=== PATIENT | male | born 1955 | race Two or more races ===

== ENCOUNTER 2016-12-10 15:21 | Emergency (ER) | payer BC ==
[2016-12-10 15:32] VITALS: BP 118/62
--- NOTE | 2016-12-10 15:36 | ER Document Report ---
ED Medical Screen (RME) - General Stated Complaint: LIGHT HEADED Time seen by provider: 15:35 Mode of Arrival: Wheelchair Information source: Patient Notes: 51-year-old male presents to ED for lightheadedness and dizziness for the last hour. Denies any chest pain or pressure denies shortness of breath. States he has a back pain all over. States she had a light heart attack a couple years ago. I have greeted and performed a rapid initial assessment of this patient. A comprehensive ED assessment and evaluation of the patient, analysis of test results and completion of medical decision making process will be conducted by an additional ED providers. TRAVEL OUTSIDE OF THE [place] IN LAST 30 DAYS: No - Related Data Allergies/Adverse Reactions: No Known Allergies Allergy (Verified 12/10/16 15:34) Past Medical History - Past Medical History Cardiac Medical History: Reports: Hx Heart Attack, Hx Hypercholesterolemia, Hx Hypertension Denies: Hx Coronary Artery Disease Pulmonary Medical History: Reports: Hx Pneumonia - 4 year ago. Denies: Hx Asthma, Hx Bronchitis, Hx COPD Neurological Medical History: Denies: Hx Cerebrovascular Accident, Hx Seizures Endocrine Medical History: Reports: Hx Diabetes Mellitus Type 2 Musculoskeltal Medical History: Reports Hx Arthritis Past Surgical History: Reports: Hx Orthopedic Surgery - left and right knee - Immunizations Hx Diphtheria, Pertussis, Tetanus Vaccination: Yes Physical Exam - Vital signs Vitals: Temp Pulse Resp BP Pulse Ox 98.8 F 100 20 118/62 98 12/10/16 15:30 12/10/16 15:30 12/10/16 15:30 12/10/16 15:30 12/10/16 15:30 Course - Vital Signs Vital signs: Temp Pulse Resp BP Pulse Ox 98.8 F 100 20 118/62 98 12/10/16 15:30 12/10/16 15:30 12/10/16 15:30 12/10/16 15:30 12/10/16 15:30 - Laboratory Result Diagrams: 12/10/16 16:00 12/10/16 16:00 Laboratory results interpreted by me: 12/10/16 16:00 Carbon Dioxide 21 L Glucose 229 H Doctor's Discharge - Discharge Disposition: [facility]
[2016-12-10] MEDS ORDERED: ASPIRIN 81 MG TABLET, CHEWABLE PO ONE (15:37)
[2016-12-10 16:17] LABS: ABSOLUTE BASOPHILS # (AUTO) 0.1 10^3/uL (0.0-0.2); ABSOLUTE EOSINOPHILS # (AUTO) 0.3 10^3/uL (0.0-0.6); ABSOLUTE LYMPHOCYTES (AUTO) 1.7 10^3/uL (0.5-4.7); ABSOLUTE MONOCYTES (AUTO) 0.7 10^3/uL (0.1-1.4); BASOPHILS % (AUTO) 0.8 % (0-2); EOSINOPHILS % (AUTO) 2.8 % (0-6); HEMATOCRIT 44.2 % (37.9-51.0); HEMOGLOBIN 14.5 g/dL (13.5-17.0); HGB HCT DIFFERENCE -0.7; LYMPHOCYTES % (AUTO) 17.2 % (13-45); MEAN CORPUSCULAR HEMOGLOBIN 30.5 pg (27.0-33.4); MEAN CORPUSCULAR HGB CONC 32.9 g/dL (32.0-36.0); MEAN CORPUSCULAR VOLUME 93 fl (80-97); MONOCYTES % (AUTO) 7.1 % (3-13); RED BLOOD COUNT 4.76 10^6/uL (4.35-5.55); RED CELL DISTRIBUTION WIDTH 13.7 % (11.5-14.0); SEGMENTED NEUTROPHILS % (AUTO) 72.1 % (42-78); WHITE BLOOD COUNT 9.7 10^3/uL (4.0-10.5)
[2016-12-10 16:32] LABS: ALANINE AMINOTRANSFERASE 46 U/L (21-72); ALBUMIN 4.2 g/dL (3.5-5.0); ALKALINE PHOSPHATASE 83 U/L (38-126); ANION GAP 14 (5-19); ASPARTATE AMINO TRANSFERASE 28 U/L (17-59); BILIRUBIN,DIRECT 0.3 mg/dL (0.0-0.4); BILIRUBIN,TOTAL 0.7 mg/dL (0.2-1.3); BLOOD UREA NITROGEN 8 mg/dL (7-20); CARBON DIOXIDE 21 mmol/L (22-30); CHLORIDE 105 mmol/L (98-107); CREATINE KINASE 69 U/L (55-170); CREATININE RESULT 0.54 mg/dL (0.52-1.25); GLUCOSE 229 mg/dL (75-110); SODIUM 140.3 mmol/L (137-145); TOTAL PROTEIN 7.3 g/dL (6.3-8.2)
[2016-12-10 16:51] LABS: CREATINE KINASE MB 0.56 ng/mL (<4.55)
[2016-12-10 16:53] LABS: TROPONIN I < 0.012 ng/mL
--- NOTE | 2016-12-10 18:35 | EKG REPORT ---
SEVERITY:- ABNORMAL ECG - SINUS RHYTHM RIGHT BUNDLE BRANCH BLOCK LVH WITH IVCD AND SECONDARY REPOL ABNRM : Confirmed by: Wilber Lindsey MD 10-Dec-2016 18:34:40
== END 2016-12-10 20:15 | disposition left against medical advice (07) ==
LOC: ER 15:21
DX: Z53.9 Procedure and treatment not carried out, unspecified reason (principal); R42 Dizziness and giddiness; E78.00 Pure hypercholesterolemia, unspecified; I10 Essential (primary) hypertension; I25.2 Old myocardial infarction
CPT/HCPCS: 36415; 71020; 80053; 82550; 82553; 84484; 85025; 93005; 93010; 99281

== ENCOUNTER → 2017-03-12 | Outpatient (CLI) | payer BC ==
[2017-03-12 18:25] LABS: ABSOLUTE BASOPHILS # (AUTO) 0.1 10^3/uL (0.0-0.2); ABSOLUTE EOSINOPHILS # (AUTO) 0.5 10^3/uL (0.0-0.6); ABSOLUTE LYMPHOCYTES (AUTO) 2.4 10^3/uL (0.5-4.7); ABSOLUTE MONOCYTES (AUTO) 0.8 10^3/uL (0.1-1.4); ABSOLUTE NEUT (AUTO) 6.8 10^3/uL (1.7-8.2); BASOPHILS % (AUTO) 0.6 % (0-2); EOSINOPHILS % (AUTO) 4.6 % (0-6); HEMATOCRIT 42.7 % (37.9-51.0); HEMOGLOBIN 13.9 g/dL (13.5-17.0); LYMPHOCYTES % (AUTO) 22.7 % (13-45); MEAN CORPUSCULAR HEMOGLOBIN 30.9 pg (27.0-33.4); MEAN CORPUSCULAR HGB CONC 32.7 g/dL (32.0-36.0); MEAN CORPUSCULAR VOLUME 95 fl (80-97); MONOCYTES % (AUTO) 7.7 % (3-13); RED BLOOD COUNT 4.51 10^6/uL (4.35-5.55); RED CELL DISTRIBUTION WIDTH 13.9 % (11.5-14.0); SEGMENTED NEUTROPHILS % (AUTO) 64.4 % (42-78); WHITE BLOOD COUNT 10.6 10^3/uL (4.0-10.5)
[2017-03-12 18:51] LABS: ALANINE AMINOTRANSFERASE 49 U/L (21-72); ALBUMIN 4.1 g/dL (3.5-5.0); ALKALINE PHOSPHATASE 73 U/L (38-126); ANION GAP 11 (5-19); ASPARTATE AMINO TRANSFERASE 41 U/L (17-59); BILIRUBIN,DIRECT 0.3 mg/dL (0.0-0.4); BILIRUBIN,TOTAL 0.5 mg/dL (0.2-1.3); BLOOD UREA NITROGEN 6 mg/dL (7-20); CALCIUM 9.5 mg/dL (8.4-10.2); CARBON DIOXIDE 25 mmol/L (22-30); CHLORIDE 103 mmol/L (98-107); CREATINE KINASE 111 U/L (55-170); CREATININE RESULT 0.53 mg/dL (0.52-1.25); GLUCOSE 157 mg/dL (75-110); SODIUM 139.3 mmol/L (137-145); TOTAL PROTEIN 7.3 g/dL (6.3-8.2)
== END ==
LOC: LAB 17:03
PROVIDERS: ATTEND Obstetrics & Gynecology
DX: E11.9 Type 2 diabetes mellitus without complications (principal); I10 Essential (primary) hypertension
CPT/HCPCS: 36415; 80053; 82550; 83036; 85025

== ENCOUNTER → 2017-10-18 | Outpatient (CLI) | payer BC ==
[2017-10-18 11:52] LABS: APPEARANCE,URINE CLEAR; BILIRUBIN,URINE NEGATIVE (NEGATIVE); COLOR,URINE YELLOW; GLUCOSE, URINE >=500 mg/dL (NEGATIVE); KETONES,URINE NEGATIVE (NEGATIVE); LEUKOCYTE ESTERASE,URINE NEGATIVE (NEGATIVE); NITRITE,URINE NEGATIVE (NEGATIVE); PROTEIN,URINE 30 mg/dL (NEGATIVE)
[2017-10-18 11:53] LABS: ABSOLUTE BASOPHILS # (AUTO) 0.1 10^3/uL (0.0-0.2); ABSOLUTE EOSINOPHILS # (AUTO) 0.5 10^3/uL (0.0-0.6); ABSOLUTE LYMPHOCYTES (AUTO) 2.3 10^3/uL (0.5-4.7); ABSOLUTE MONOCYTES (AUTO) 0.6 10^3/uL (0.1-1.4); ABSOLUTE NEUT (AUTO) 5.3 10^3/uL (1.7-8.2); BASOPHILS % (AUTO) 0.8 % (0-2); EOSINOPHILS % (AUTO) 5.9 % (0-6); HEMATOCRIT 42.7 % (37.9-51.0); HEMOGLOBIN 14.1 g/dL (13.5-17.0); LYMPHOCYTES % (AUTO) 26.2 % (13-45); MEAN CORPUSCULAR HEMOGLOBIN 31.2 pg (27.0-33.4); MEAN CORPUSCULAR VOLUME 95 fl (80-97); MONOCYTES % (AUTO) 7.3 % (3-13); PLATELET COUNT 263 10^3/uL (150-450); RED BLOOD COUNT 4.51 10^6/uL (4.35-5.55); RED CELL DISTRIBUTION WIDTH 13.8 % (11.5-14.0); SEGMENTED NEUTROPHILS % (AUTO) 59.8 % (42-78); TOTAL CELLS COUNTED % (AUTO) 100 %; WHITE BLOOD COUNT 8.8 10^3/uL (4.0-10.5)
[2017-10-18 12:19] LABS: ANION GAP 11 (5-19); BLOOD UREA NITROGEN 8 mg/dL (7-20); CALCIUM 10.1 mg/dL (8.4-10.2); CARBON DIOXIDE 28 mmol/L (22-30); CHLORIDE 101 mmol/L (98-107); GLUCOSE 231 mg/dL (75-110); SODIUM 139.5 mmol/L (137-145)
--- NOTE | 2017-10-18 12:47 | EKG REPORT ---
SEVERITY:- ABNORMAL ECG - SINUS RHYTHM IVCD, CONSIDER ATYPICAL RBBB LVH WITH IVCD AND SECONDARY REPOL ABNRM : Confirmed by: Janet Fox MD 18-Oct-2017 12:46:28
--- NOTE | 2017-10-18 13:09 | RADIOLOGY REPORT (SQ) ---
EXAM DESCRIPTION: CHEST PA/LATERAL COMPLETED DATE/TIME: 10/18/2017 11:48 am REASON FOR STUDY: PRE-OP COMPARISON: 12/10/2016. EXAM PARAMETERS: NUMBER OF VIEWS: two views TECHNIQUE: Digital Frontal and Lateral radiographic views of the chest acquired. RADIATION DOSE: NA LIMITATIONS: none FINDINGS: LUNGS AND PLEURA: No opacities, masses or pneumothorax. No pleural effusion. MEDIASTINUM AND HILAR STRUCTURES: No masses or contour abnormalities. HEART AND VASCULAR STRUCTURES: Heart normal size. No evidence for failure. BONES: No acute findings. Degenerative changes in the spine. HARDWARE: None in the chest. OTHER: No other significant finding. IMPRESSION: NO SIGNIFICANT RADIOGRAPHIC FINDING IN THE CHEST. TECHNICAL DOCUMENTATION: JOB ID: [id number] [employer]- All Rights Reserved
== END ==
LOC: OD 10:32
PROVIDERS: ATTEND Orthopaedic Surgery
DX: Z01.810 Encounter for preprocedural cardiovascular examination (principal); Z01.812 Encounter for preprocedural laboratory examination; Z01.818 Encounter for other preprocedural examination; E11.9 Type 2 diabetes mellitus without complications
CPT/HCPCS: 36415; 71046; 80048; 81001; 83036; 85025; 93005; 93010

== ENCOUNTER → 2017-10-24 | Outpatient (CLI) | payer BC ==
[2017-10-24 11:37] LABS: AMORPHOUS SEDIMENT,URINE TRACE /HPF; APPEARANCE,URINE CLOUDY; BILIRUBIN,URINE SMALL (NEGATIVE); COLOR,URINE AMBER; GLUCOSE, URINE NEGATIVE (NEGATIVE); KETONES,URINE NEGATIVE (NEGATIVE); LEUKOCYTE ESTERASE,URINE TRACE (NEGATIVE); NITRITE,URINE NEGATIVE (NEGATIVE); PROTEIN,URINE 30 mg/dL (NEGATIVE); URINE SPECIFIC GRAVITY 1.032
[2017-10-24 11:38] LABS: ABSOLUTE BASOPHILS # (AUTO) 0.1 10^3/uL (0.0-0.2); ABSOLUTE EOSINOPHILS # (AUTO) 0.3 10^3/uL (0.0-0.6); ABSOLUTE LYMPHOCYTES (AUTO) 1.6 10^3/uL (0.5-4.7); ABSOLUTE MONOCYTES (AUTO) 0.9 10^3/uL (0.1-1.4); ABSOLUTE NEUT (AUTO) 6.8 10^3/uL (1.7-8.2); HEMATOCRIT 44.5 % (37.9-51.0); HEMOGLOBIN 14.8 g/dL (13.5-17.0); MEAN CORPUSCULAR HEMOGLOBIN 31.6 pg (27.0-33.4); MEAN CORPUSCULAR HGB CONC 33.3 g/dL (32.0-36.0); MEAN CORPUSCULAR VOLUME 95 fl (80-97); MONOCYTES % (AUTO) 9.3 % (3-13); PLATELET COUNT 300 10^3/uL (150-450); RED BLOOD COUNT 4.69 10^6/uL (4.35-5.55); RED CELL DISTRIBUTION WIDTH 13.9 % (11.5-14.0); SEGMENTED NEUTROPHILS % (AUTO) 69.7 % (42-78); TOTAL CELLS COUNTED % (AUTO) 100 %; WHITE BLOOD COUNT 9.7 10^3/uL (4.0-10.5)
[2017-10-24 11:56] LABS: ANION GAP 10 (5-19); BLOOD UREA NITROGEN 8 mg/dL (7-20); CALCIUM 10.4 mg/dL (8.4-10.2); CARBON DIOXIDE 26 mmol/L (22-30); CHLORIDE 103 mmol/L (98-107); GLUCOSE 134 mg/dL (75-110); POTASSIUM 4.5 mmol/L (3.6-5.0); SODIUM 139.3 mmol/L (137-145)
== END ==
LOC: OD 10:59
PROVIDERS: ATTEND Orthopaedic Surgery
DX: Z01.812 Encounter for preprocedural laboratory examination (principal)
CPT/HCPCS: 36415; 80048; 81001; 85025

== ENCOUNTER 2017-11-04 07:18 | Inpatient (IN) | payer BC ==
[~2017-11-04 07:18] MED LIST: BUPIVACAINE INJ/PF LIPOSOME/PF 266 MG/20 ML SDV IJ PRN; CEFAZOLIN INJ 1 GM VIAL IV PRN; IBUPROFEN 800 MG/NS 250 ML IV PRN; LACTATED RINGERS 1000 ML IV PRN; LANSOPRAZOLE 15 MG TAB.RAP.DR PO PRN; LIDOCAINE 0.5% INJ-PF (5 MG/ML) 50 ML SDV SUBCUT PRN; OXYCODONE HCL SR 10 MG TABLET PO PRN; SCOPOLAMINE HYDROBROMIDE 1.5 MG PATCH.TD72 TOP PRN; VANCOMYCIN HCL 1,000 MG in DEXTROSE 5%-WATER 250 ML IV PRN
[2017-11-04] MEDS ORDERED: THROMBIN (BOVINE) 5000 UNIT EPITAXIS KIT ONE (09:36)
[2017-11-04] MEDS ORDERED: BUPIVACAINE INJ/PF LIPOSOME/PF 266 MG/20 ML SDV ONE (09:36)
[2017-11-04] MEDS ORDERED: THROMBIN (BOVINE) TOPICAL 20000 UNIT VIAL ONE (09:36)
[2017-11-04] MEDS ORDERED: FENTANYL CITRATE INJ/PF 100 MCG/2 ML AMPUL ONE ×2 (09:44)
[2017-11-04] MEDS ORDERED: MIDAZOLAM 2 MG/2 ML INJ ONE (09:44)
[2017-11-04] MEDS ORDERED: ONDANSETRON HCL INJ/PF 4 MG/2 ML SDV ONE (09:45)
[2017-11-04] MEDS ORDERED: EPHEDRINE SULFATE INJ 50 MG/1 ML AMPULE ONE (09:45)
[2017-11-04] MEDS ORDERED: TRANEXAMIC ACID INJ/PF 1,000 MG/10 ML SDV IV ONE ×2 (09:45→13:42)
[2017-11-04] MEDS ORDERED: PROPOFOL INJ 200 MG/20 ML VIAL IV ONE (09:45)
[2017-11-04] MEDS ORDERED: DIPHENHYDRAMINE HCL 50 MG/ML VIAL IV PRN ×2 (11:00→11:52)
[2017-11-04] MEDS ORDERED: FENTANYL CITRATE INJ/PF 100 MCG/2 ML AMPUL IV PRN ×3 (11:00)
[2017-11-04] MEDS ORDERED: PROMETHAZINE HCL INJ 25 MG/1 ML VIAL IV PRN (11:00)
--- NOTE | 2017-11-04 11:33 | Operative Report ---
Operative Report DATE OF SURGERY: 11/04/17 PREOPERATIVE DIAGNOSIS: Right knee arthritis OPERATION: Right knee arthroplasty SURGEON: NASEEM HUGHES 1ST EDITING INTERNSHIP: [employer] ANESTHESIA: Spinal TISSUE REMOVED OR ALTERED: Bone to pathology ESTIMATED BLOOD LOSS: 100 PROCEDURE: Implants used: Femur: Viper triathlon size 7 CR femur Tibia: 6 tibia Tibial liner: 9 mm CS insert Patella: 38 mm oval patella Procedure with the patient supine on the operating table the right the limb is prepped and draped in a sterile fashion. The limb was elevated for exsanguination and the tourniquet inflated to 280 torr. A lateral parapatellar skin incision is made because of her previous surgical approach for an MCL repair in the distant past. I was concerned about skin viability an attempt was made to keep the skin incision only 7 cm from the previous skin incision.. A flap is raised and subsequently a medial retinacular incision is made. Access is gained to the femoral canal through the intercondylar notch. Intramedullary alignment instrumentation used to resect 10 mm of distal femur in 5 of valgus. Sizing guide indicated a size 7 femur. Appropriate cutting jig is then used to fashion anterior posterior and chamfer cuts. A trial reduction femurs performed and this is judged to be adequate. Attention was next turned to the tibia. Using an extra medullary alignment system 9 millimeters was resected off the lateral tibial plateau. This is sized to a size 6 tibia. A trial reduction was now performed with a 7 femur and a 6 tibia using a 9 millimeters spacer. It is full extension and central patellofemoral tracking. The articular surface the patella was next resected using an oscillating saw. All trial implants were removed. Polymethylmethacrylate is mixed and used to cement the above implants in place. On adequate curing the cement excess cement was removed the tourniquet was deflated hemostasis obtained the wound is then closed in layers using interrupted Vicryl followed by issa. A sterile compressive dressing was applied and the patient returned to recovery room in satisfactory condition.
[2017-11-04] MEDS ORDERED: ACETAMINOPHEN 325 MG TABLET PO PRN (11:52)
[2017-11-04] MEDS ORDERED: ONDANSETRON HCL INJ/PF 4 MG/2 ML SDV IV PRN (11:52)
[2017-11-04] MEDS ORDERED: MAG HYDROX/AL HYDROX/SIMETH SUSP 30 ML UDCUP PO PRN (11:52)
[2017-11-04] MEDS ORDERED: ONDANSETRON 4 MG TAB.RAPDIS PO PRN (11:52)
[2017-11-04] MEDS ORDERED: OXYCODONE HCL IR 5 MG TABLET PO PRN (11:52)
[2017-11-04] MEDS ORDERED: ZOLPIDEM TARTRATE 5 MG TABLET PO PRN (11:52)
--- NOTE | 2017-11-04 13:06 | RADIOLOGY REPORT (SQ) ---
EXAM DESCRIPTION: KNEE RIGHT 2 VIEWS COMPLETED DATE/TIME: 11/04/2017 12:38 pm REASON FOR STUDY: Post OP -Long Cassette in PACU M17.11 UNILATERAL PRIMARY OSTEOARTHRITIS, RIGHT KN EE COMPARISON: 11/04/2013 NUMBER OF VIEWS: Two view(s). TECHNIQUE: Digital radiographic images of the right knee post-procedure. LIMITATIONS: None. FINDINGS: BONES: No worrisome or unexpected findings post-procedure. DEVICE: Total knee arthroplasty. SOFT TISSUES: No worrisome findings. Expected postoperative soft tissue changes. IMPRESSION: SATISFACTORY POSTOPERATIVE right KNEE. TECHNICAL DOCUMENTATION: JOB ID: [id number] [employer]- All Rights Reserved
[2017-11-04] MEDS: FENTANYL CITRATE INJ/PF 100 MCG/2 ML AMPUL ONE ×2 (13:43→14:00)
[2017-11-04] MEDS: HYDROMORPHONE HCL INJ/PF 2 MG/ML AMPULE IV PRN ×2 (15:35→20:11)
[2017-11-04] MEDS: PREGABALIN 75 MG CAPSULE PO SCH (17:45)
[2017-11-04] MEDS: IBUPROFEN 800 MG in NORMAL SALINE 250 ML IV SCH (17:45)
[2017-11-04] MEDS ORDERED: ACETAMINOPHEN 100 ML IV ONE ×2 (17:52→20:00)
[2017-11-04] MEDS: OXYCODONE HCL SR 10 MG TABLET PO SCH (21:33)
[2017-11-04] MEDS ORDERED: VANCOMYCIN HCL 1,000 MG in DEXTROSE 5%-WATER 250 ML IV ONE (23:52)
[2017-11-05] MEDS: IBUPROFEN 800 MG in NORMAL SALINE 250 ML IV SCH ×2 (01:05→10:09)
[2017-11-05] MEDS ORDERED: LANSOPRAZOLE 30 MG TAB.RAP.DR PO SCH (06:00)
[2017-11-05 06:38] LABS: HEMATOCRIT 33.4 % (37.9-51.0); HEMOGLOBIN 11.1 g/dL (13.5-17.0); MEAN CORPUSCULAR HEMOGLOBIN 31.6 pg (27.0-33.4); MEAN CORPUSCULAR HGB CONC 33.2 g/dL (32.0-36.0); MEAN CORPUSCULAR VOLUME 95 fl (80-97); PLATELET COUNT 198 10^3/uL (150-450); RED BLOOD COUNT 3.52 10^6/uL (4.35-5.55); WHITE BLOOD COUNT 11.3 10^3/uL (4.0-10.5)
[2017-11-05 06:58] LABS: ANION GAP 9 (5-19); BLOOD UREA NITROGEN 9 mg/dL (7-20); CALCIUM 8.8 mg/dL (8.4-10.2); CARBON DIOXIDE 22 mmol/L (22-30); CHLORIDE 105 mmol/L (98-107); GLUCOSE 158 mg/dL (75-110); POTASSIUM 4.4 mmol/L (3.6-5.0); SODIUM 136.2 mmol/L (137-145)
--- NOTE | 2017-11-05 07:13 | PDOC DISCHARGE SUMMARY ---
General - Admit/Disc Date/PCP Admission Date/Primary Care Provider: 11/04/17 07:18 DEVIN TEE MD Discharge Date: 11/05/17 - Discharge Diagnosis (1) Arthritis of right knee Is this a current diagnosis for this admission?: Yes - Additional Information Resuscitation Status: Full Code Discharge Diet: As Tolerated, Regular Discharge Activity: Activity As Tolerated, No Driving, No tub bath, Walk Frequently Home Medications: Atorvastatin Calcium 40 mg PO QHS 10/23/17 Hydrocodone/Acetaminophen [Hydrocodone-Acetamin 7.5-325] 1 tab PO ASDIR PRN Metformin HCl [Glucophage] 500 mg PO BID 10/23/17 Amlodipine Besylate/Benazepril [Amlodipine-Benazepril 10-20 mg] 1 cap PO QHS 09/09 Isosorbide Mononitrate [Isosorbide Mononitrate ER] 30 mg PO DAILY 11/04/17 History of Present Illness History of Present Illness: KARINE ESQUEDA is a 62 year old male with progressive pain and decreased functional mobility due to right knee arthritis. He is admitted to the hospital to the OR and undergoes elective total right knee arthroplasty. Hospital Course Hospital Course: 62-year-old male with progressive pain and decreased functional mobility due to right knee arthritis admitted through the OR and undergoes elective total right knee arthroplasty. The surgical procedure is uncomplicated and he is returned to PACU in satisfactory condition. He is taken to the surgical floor where he is seen by physical therapy for weightbearing as tolerated on the right lower extremity as well as nursing staff for pain control. He makes great progress with physical therapy ambulating up to 300 feet independently. His pain is well controlled. He will be discharged to his home today with home health nursing, home physical therapy , wheeled walker, bedside commode. Physical Exam Vital Signs: Temp Pulse Resp BP Pulse Ox 36.8 C 79 20 109/68 92 11/05/17 03:58 11/05/17 03:58 11/05/17 03:58 11/05/17 03:58 11/05/17 03:58 Intake & Output 11/04/17 11/05/17 11/06/17 06:59 06:59 06:59 Intake Total 0 Output Total 2049 Balance 1989 General appearance: PRESENT: no acute distress, well-developed, well-nourished Head exam: PRESENT: atraumatic, normocephalic Respiratory exam: PRESENT: unlabored Pulses: PRESENT: normal dorsalis pedis pul, +2 pedal pulses bilateral Vascular exam: PRESENT: normal capillary refill Additional comments: Patient lying recumbent in hospital bed with right foot elevated on a pillow. His OpSite compression dressing is clean dry and intact and this is removed this morning. Underlying OpSite honeycomb dressing is clean dry and intact and this is left in place. He has minimal pedal edema and brisk capillary refill to toes on bilateral lower extremities. His leg lengths are equal and his distal neurovascular exam is intact. Musculoskeletal exam: PRESENT: ambulatory Additional comments: Patient has made great progress with physical therapy ambulating 300 feet on postop day 0 with physical therapy. He will continue to work with PT at home to improve distance of ambulation and strength range of motion of right lower extremity. Patient was even using wheeled walker and ambulating through the hallways this morning. Neurological exam: PRESENT: alert, awake, oriented to person, oriented to place , oriented to time, oriented to situation, CN II-XII grossly intact. ABSENT: motor sensory deficit Psychiatric exam: PRESENT: appropriate affect, normal mood. ABSENT: homicidal ideation, suicidal ideation Skin exam: PRESENT: dry, intact, warm. ABSENT: cyanosis, rash Results Laboratory Results: 11/05/17 05:20 11/05/17 05:20 11/05/17 11/05/17 05:20 05:20 WBC 11.3 H RBC 3.52 L Hgb 11.1 L Hct 33.4 L MCV 95 MCH 31.6 MCHC 33.2 RDW 14.0 Plt Count 198 Sodium 136.2 L Potassium 4.4 Chloride 105 Carbon Dioxide 22 Anion Gap 9 BUN 9 Creatinine 0.68 Est GFR ( Amer) > 60 Est GFR (Non-Af Amer) > 60 Glucose 158 H Calcium 8.8 Impressions: Knee X-Ray 11/04/17 11:53 IMPRESSION: SATISFACTORY POSTOPERATIVE right KNEE. Plan Discharge Plan: 62-year-old male 1 day status post total right knee arthroplasty. Patient's OpSite compression dressing was removed this morning and underlying OpSite dressings are clean dry and intact. These will be left in place. He has made great progress of physical therapy on postop day 0 ambulate 300 feet independently. He will continue to work with home physical therapy to improve strength range of motion of right lower extremity and work towards further ambulation. He will be discharged to his home today with home health nursing, home physical therapy, wheeled walker, bedside commode. He will follow-up with [facility] for surgery Dr. Smith 2 weeks postoperatively for reevaluation and staple removal. Time Spent: Less than 30 Minutes
[2017-11-05] MEDS: HYDROMORPHONE HCL INJ/PF 2 MG/ML AMPULE IV PRN (07:53)
[2017-11-05] MEDS ORDERED: ASPIRIN 81 MG TABLET, CHEWABLE PO SCH (10:00)
[2017-11-05] MEDS: OXYCODONE HCL SR 10 MG TABLET PO SCH (10:08)
[2017-11-05] MEDS: PREGABALIN 75 MG CAPSULE PO SCH (10:08)
[2017-11-05 11:16] VITALS: BP 109/68
== END 2017-11-05 13:36 | disposition home health service (06) | DRG 470 ==
LOC: INOR 07:18 → 4S 15:21
PROVIDERS: ADMIT Orthopaedic Surgery; ATTEND Orthopaedic Surgery
PROC: 0SRC0J9 Replacement of Right Knee Joint with Synthetic Substitute, Cemented, Open Approach (ICD-10-PCS; principal; 2017-11-04 10:00)
DX: M17.11 Unilateral primary osteoarthritis, right knee (principal); M25.561 Pain in right knee; I10 Essential (primary) hypertension; E11.9 Type 2 diabetes mellitus without complications; E78.00 Pure hypercholesterolemia, unspecified; F17.210 Nicotine dependence, cigarettes, uncomplicated; Z79.84 Long term (current) use of oral hypoglycemic drugs; Z79.899 Other long term (current) drug therapy
CPT/HCPCS: 01402; 36415; 80048; 82962; 85027; 88305; 88311; 94799; C2625; C9290; J0131; J0690; J1170; J1741; J2250; J2405; J2704; J3010; J3370; J3490; J7050; J7060

== ENCOUNTER 2017-11-11 02:52 | Emergency (ER) | payer BC ==
[2017-11-11 03:02] VITALS: BP 147/74
[2017-11-11] MEDS ORDERED: HYDROCODONE/ACETAMINOPHEN 5-325 MG (6 TAB/ER DISP) PO PRN (03:35)
[2017-11-11] MEDS ORDERED: HYDROMORPHONE HCL INJ/PF 2 MG/ML AMPULE IM ONE (03:35)
--- NOTE | 2017-11-11 03:39 | ER Document Report ---
ED General - General Chief Complaint: Knee Pain Stated Complaint: KNEE PAIN Time Seen by Provider: 11/11/17 03:21 Notes: Patient is a pleasant 62-year-old male presents with complaint of pain. He has pain in his right knee. He had knee replacement surgery one week ago. He is scheduled see his orthopedist tomorrow. He says he ran out of his medicine now is having severe pain in his knee. No new swelling. No redness. No fevers. No other complaints at this time. He says he just needs pain control until he can see his orthopedist tomorrow. He has no other complaints. TRAVEL OUTSIDE OF THE [place] IN LAST 30 DAYS: No - Related Data Allergies/Adverse Reactions: No Known Allergies Allergy (Verified 11/04/17 08:31) Past Medical History - Social History Smoking Status: Unknown if Ever Smoked Frequency of alcohol use: None Drug Abuse: None Family History: Reviewed & Not Pertinent Patient has suicidal ideation: No Patient has homicidal ideation: No - Past Medical History Cardiac Medical History: Reports: Hx Heart Attack, Hx Hypercholesterolemia, Hx Hypertension Denies: Hx Atrial Fibrillation, Hx Congestive Heart Failure, Hx Coronary Artery Disease, Hx Peripheral Vascular Disease, Hx Pulmonary Embolism, Hx Heart Murmur Pulmonary Medical History: Reports: Hx Pneumonia - 4 year ago. Denies: Hx Asthma, Hx Bronchitis, Hx COPD, Hx Respiratory Failure, Hx Sleep Apnea, Hx Tuberculosis Neurological Medical History: Denies: Hx Cerebrovascular Accident, Hx Seizures Endocrine Medical History: Reports: Hx Diabetes Mellitus Type 2. Denies: Hx Graves' Disease, Hx Hyperthyroidism, Hx Hypothyroidism Renal/ Medical History: Denies: Hx Peritoneal Dialysis Malignancy Medical History: Denies Hx Lung Cancer Musculoskeltal Medical History: Reports Hx Arthritis, Denies Hx Fibromyalgia, Denies Hx Muscular Dystrophy Traumatic Medical History: Denies: Hx Fractures Past Surgical History: Reports: Hx Orthopedic Surgery - left and right knee. Denies: Hx Appendectomy, Hx Bowel Surgery, Hx Cholecystectomy, Hx Coronary Artery Bypass Graft, Hx Gastric Bypass Surgery, Hx Herniorrhaphy, Hx Pacemaker, Hx Tonsillectomy - Immunizations Hx Diphtheria, Pertussis, Tetanus Vaccination: Yes Review of Systems - Review of Systems Notes: My Normal Review Basic REVIEW OF SYSTEMS: CONSTITUTIONAL : Denies fever, chills, or sweats. Denies recent illness. RESPIRATORY: Denies cough, cold, or chest congestion. Denies shortness of breath, difficulty breathing, or wheezing. GASTROINTESTINAL: Denies abdominal pain. Denies nausea, vomiting, or diarrhea. Denies constipation. Last BM: MUSCULOSKELETAL: Postoperative knee pain. SKIN: Denies rash or skin lesions. NEUROLOGICAL: Denies sensory or motor loss. ALL OTHER SYSTEMS REVIEWED AND NEGATIVE. Physical Exam - Vital signs Vitals: Temp Pulse Resp BP Pulse Ox 98.4 F 80 21 H 147/74 H 99 11/11/17 02:59 11/11/17 02:59 11/11/17 02:59 11/11/17 02:59 11/11/17 02:59 - Notes Notes: General Appearance: Well nourished, alert, cooperative, no acute distress, moderate obvious discomfort. Well-appearing Vitals: reviewed, See vital signs table. Extremities: strength 5/5 in all extremities, good pulses in all extremities, patient has normal amount of swelling to the knee as you would expect pain 1 week post knee replacement surgery. There is no significant redness. No abnormal warmth. No signs of infection. No abnormal drainage. He does have bruising going into the thigh which again is to be expected after having knee replacement surgery. The foot itself has good pulses and good capillary refill and good distal sensation. Skin: warm, dry, appropriate color, no rash Neuro: speech clear, oriented x 3, normal affect, responds appropriately to questions. Course - Re-evaluation Re-evalutation: 11/11/17 03:48 She was given a shot of Dilaudid. Will be sent home with [place]. He is encouraged follow-up with his orthopedist tomorrow as scheduled. Is encouraged to return to ER immediately if he has fevers, worsening pain, any redness or swelling to the knee, or if he has any further concerns. Patient agrees with plan will be discharged home. Dictation of this chart was performed using voice recognition software; therefore, there may be some unintended grammatical errors. - Vital Signs Vital signs: Temp Pulse Resp BP Pulse Ox 98.4 F 80 21 H 147/74 H 99 11/11/17 02:59 11/11/17 02:59 11/11/17 02:59 11/11/17 02:59 11/11/17 02:59 Discharge - Discharge Clinical Impression: Post-operative pain Condition: Good Disposition: HOME, SELF-CARE Instructions: Oral Narcotic Medication ([facility]) Additional Instructions: Please take the pain medicine as prescribed. please follow up with Dr. Hughes tomorrow as scheduled. Please return to the ER if you have increasing swelling, fevers, or any sign of infection to your knee. Please wait at least 2 hours after receiving the shot in the ER before taking any further pain medicine. Prescriptions: Hydrocodone/Acetaminophen [[place] 5-325 mg Tablet] 1 tab PO Q4 PRN #12 tablet PRN Reason: For Breakthrough Pain Referrals: NASEEM HUGHES MD [ACTIVE STAFF] - Follow up tomorrow
== END 2017-11-11 03:50 | disposition home or self-care (01) ==
LOC: ER 02:52
DX: G89.18 Other acute postprocedural pain (principal); M25.561 Pain in right knee; Z96.651 Presence of right artificial knee joint; E78.00 Pure hypercholesterolemia, unspecified; I10 Essential (primary) hypertension; E11.9 Type 2 diabetes mellitus without complications; I25.2 Old myocardial infarction
CPT/HCPCS: 99283; 96372; J1170

== ENCOUNTER 2018-11-13 10:27 | Day surgery (SDC) | payer BC ==
[~2018-11-13 10:27] MED LIST changes: +BUPIVACAINE HCL 0.75% INJ/PF (7.5 MG/1 ML) 10 ML SDV ONE; -BUPIVACAINE INJ/PF LIPOSOME/PF 266 MG/20 ML SDV IJ PRN; -CEFAZOLIN INJ 1 GM VIAL IV PRN; +CHONDR SU A NA/HYALUR INTRAOC KIT (SURGICARE) ONE; +EPINEPHRINE INJ/PF 1 MG/1 ML AMPULE ONE; +HYALURONIDASE INJ 150 UNIT/1 ML VIAL ONE; -IBUPROFEN 800 MG/NS 250 ML IV PRN; +KETOROLAC TROMETHAMINE 0.45% 4 DROP/0.4 ML DROPERETTE OD PRN; -LACTATED RINGERS 1000 ML IV PRN; -LANSOPRAZOLE 15 MG TAB.RAP.DR PO PRN; -LIDOCAINE 0.5% INJ-PF (5 MG/ML) 50 ML SDV SUBCUT PRN; +LIDOCAINE 1% INJ-PF (10 MG/ML) 30 ML SDV ONE; +LIDOCAINE 2% INJ-PF (20 MG/ML) 10 ML AMPUL ONE; -OXYCODONE HCL SR 10 MG TABLET PO PRN; -SCOPOLAMINE HYDROBROMIDE 1.5 MG PATCH.TD72 TOP PRN; +TRYPAN BLUE 0.06 % OPH SOLN 0.5 ML DISP.SYRIN ONE; -VANCOMYCIN HCL 1,000 MG in DEXTROSE 5%-WATER 250 ML IV PRN
[2018-11-13] MEDS: TROPICAMIDE 1% OPH SOLN 3 ML OD PRN ×2 (11:05→11:22)
[2018-11-13] MEDS: CYCLOPENTOLATE 0.2%/PHENYLEPHRINE 1% OPH SOLN 2 ML OD PRN ×2 (11:05→11:22)
[2018-11-13] MEDS: BESIFLOXACIN HCL 0.6% OPH SUSP 5 ML BOTTLE OD PRN ×4 (11:06→12:11)
[2018-11-13] MEDS: TETRACAINE HCL 0.5% OPH SOLN 4 ML OD PRN ×3 (11:07→11:35)
[2018-11-13] MEDS ORDERED: LIDOCAINE 2% INJ-PF (20 MG/ML) 10 ML AMPUL ONE (11:16)
[2018-11-13] MEDS ORDERED: MIDAZOLAM 2 MG/2 ML INJ ONE (11:16)
[2018-11-13] MEDS ORDERED: PROPOFOL INJ 200 MG/20 ML VIAL IV ONE (11:17)
[2018-11-13] MEDS: DORZOLAMIDE HCL 2%/TIMOLOL MALEAT 0.5% OPH SOLN 10 ML OD PRN ×2 (12:11)
[2018-11-13] MEDS: TOBRAMYCIN SULFATE/DEXAMETH OPH OINTMENT 3.5 GM ONE ×2 (12:11)
--- NOTE | 2018-11-13 21:12 | [facility] OPERATIVE REPORT E ---
[facility] Operative Report NAME: KARINE ESQUEDA AGE: 63Y DATE OF SURGERY: 11/13/2018 ROOM: PREOPERATIVE DIAGNOSIS: MATURE CATARACT, RIGHT EYE. POSTOPERATIVE DIAGNOSIS: MATURE CATARACT, RIGHT EYE. OPERATION: Complex cataract extraction with the use of Trypan blue dye due to poor red reflex, right eye. SURGEON: VALERY VIRAMONTES M.D. ANESTHESIA: Topical and retrobulbar block of 0.75% Marcaine, 2% lidocaine and 75 units of Vitrase; approximately 5 mL of that mixture was injected. COMPLICATIONS: None. ESTIMATED BLOOD LOSS: Less than 2 mL. PROCEDURE: After obtaining appropriate consent, the patient right eye was prepped and draped in sterile fashion as well as the surgeon in a sterile manner, and the cataract surgery was started. First, the paracentesis blade was used to make a small side-port incision. Viscoelastic was used to inflate the anterior chamber. Next a 2.4 mm incision was made using a 2.4 mm keratome. At this point, the pupil was less than 4.5 mm and was very miotic. In order to complete the capsulorhexis, a Malyugin ring was inserted and found to be in excellent position to help stabilize the pupil. Following this, a continuous capsulorhexis was made using a cystitome and Utrata forceps. Following this, hydrodissection was carried out to make the lens fully loose and mobile, and it was rotated 90 degrees. Following this, a divide and conquer technique was used to phacoemulsify the lens with a CDE of approximately 44.85. The remaining cortex was removed with irrigation/aspiration. Provisc was instilled into the capsular bag to inflate the bag. A SN60WF lens of 18.5 diopters was placed. The remaining viscoelastic material was removed with irrigation/aspiration. After this the Malyugin ring was removed. Following this, the incision was found to be watertight. Besivance was instilled into the eye and a protective shield was placed over the eye. The patient returned to the postoperative recovery in stable condition. Prior to making the capsulorrhexis, the anterior capsule was stained with Trypan blue dye, due to it being a mature white cataract with no red reflex. DICTATING PHYSICIAN: VALERY VIRAMONTES M.D. [id number] PHY#: [id number] ID: [id number] JOB#: [id number] ACCT: [id number] cc:VALERY VIRAMONTES M.D. > OLGA
--- NOTE | 2018-11-13 21:13 | [facility] DISCHARGE SUMMARY E ---
[facility] Discharge Summary NAME: KARINE ESQUEDA AGE: 63Y ADMITTED: 11/13/2018 DISCHARGED: 11/13/2018 FINAL DIAGNOSIS: Mature cataract of the right eye. HOSPITAL COURSE: This is a 63-year-old male who underwent complex cataract extraction of the right eye with use of Trypan blue dye. He underwent surgery because he was unable to make out facial features. DISCHARGE INSTRUCTIONS: He should be on a regular diet. No bending at his waist, no heavy lifting. He should keep his pressure patch on. We inserted Besivance and Cosopt, followed by a pressure patch after using TobraDex, and he is to leave this on overnight. We will take it off in the morning and start his drops. He will sleep with this patch with a rigid shield. He will be on a regular diet. DICTATING PHYSICIAN: VALERY VIRAMONTES M.D. [id number] PHY#: [id number] ID: [id number] JOB#: [id number] ACCT: [id number] cc:VALERY VIRAMONTES M.D. >
== END 2018-11-13 12:56 | disposition home or self-care (01) ==
LOC: SC 10:27
PROVIDERS: ATTEND Internal Medicine
DX: H25.89 Other age-related cataract (principal); E11.9 Type 2 diabetes mellitus without complications; I25.2 Old myocardial infarction; I10 Essential (primary) hypertension; Z79.84 Long term (current) use of oral hypoglycemic drugs; Z79.899 Other long term (current) drug therapy
CPT/HCPCS: 66982; 82962; V2632; J2250; J3490 ×7; J0171; J2704; J3470; 142

== ENCOUNTER 2018-12-04 09:34 | Day surgery (SDC) | payer BC ==
[~2018-12-04 09:34] MED LIST changes: -BUPIVACAINE HCL 0.75% INJ/PF (7.5 MG/1 ML) 10 ML SDV ONE; -HYALURONIDASE INJ 150 UNIT/1 ML VIAL ONE; -KETOROLAC TROMETHAMINE 0.45% 4 DROP/0.4 ML DROPERETTE OD PRN; +KETOROLAC TROMETHAMINE 0.45% 4 DROP/0.4 ML DROPERETTE OS PRN; -LIDOCAINE 1% INJ-PF (10 MG/ML) 30 ML SDV ONE; +LIDOCAINE 1%/PHENYLEPHRINE 1.5% 1 ML VIAL ONE; -LIDOCAINE 2% INJ-PF (20 MG/ML) 10 ML AMPUL ONE; -TRYPAN BLUE 0.06 % OPH SOLN 0.5 ML DISP.SYRIN ONE
[2018-12-04] MEDS: TETRACAINE HCL 0.5% OPH SOLN 4 ML OS PRN ×4 (10:36→11:13)
[2018-12-04] MEDS: TROPICAMIDE 1% OPH SOLN 3 ML OS PRN ×3 (10:36→10:59)
[2018-12-04] MEDS: BESIFLOXACIN HCL 0.6% OPH SUSP 5 ML BOTTLE OS PRN ×4 (10:37→11:39)
[2018-12-04] MEDS: CYCLOPENTOLATE 0.2%/PHENYLEPHRINE 1% OPH SOLN 2 ML OS PRN ×3 (10:37→10:59)
[2018-12-04] MEDS ORDERED: MIDAZOLAM 2 MG/2 ML INJ ONE (10:49)
[2018-12-04] MEDS ORDERED: TRYPAN BLUE 0.06 % OPH SOLN 0.5 ML DISP.SYRIN ONE (11:20)
[2018-12-04] MEDS: DORZOLAMIDE HCL 2%/TIMOLOL MALEAT 0.5% OPH SOLN 10 ML OS PRN ×2 (11:39)
--- NOTE | 2018-12-05 06:23 | [facility] OPERATIVE REPORT E ---
[facility] Operative Report NAME: KARINE ESQUEDA AGE: 63Y DATE OF SURGERY: 12/04/2018 ROOM: PREOPERATIVE DIAGNOSIS: CATARACT, LEFT EYE. POSTOPERATIVE DIAGNOSIS: CATARACT, LEFT EYE. OPERATION: Cataract extraction with insertion of an IOL of the left eye. SURGEON: VALERY VIRAMONTES M.D. ANESTHESIA: Topical. PROCEDURE: After obtaining appropriate consent, the patient's left eye was prepped and draped in sterile fashion as well as the surgeon in a sterile manner and cataract surgery was started. First a paracentesis blade was used to make a side-port incision. Viscoelastic was used to inflate the anterior chamber. Next a 2.4 mm incision was made with a 2.4 mm blade, clear corneal temporally. A continuous capsulorrhexis was made using a cystotome and Utrata forceps. Following this hydrodissection was carried out to make the lens fully loose and mobile and it was rotated 90 degrees. Following this, a evtqyh-ssk-ygnhubd technique was used to phacoemulsify the lens with a CDE of 8.68. The remaining cortex was removed with irrigation/aspiration. Provisc was instilled into the capsular bag to inflate the bag. A SN60WF, 19.5 diopter lens was placed. The remaining viscoelastic material was removed with irrigation/aspiration. Following this, the incision was found to be watertight. Besivance was instilled into the eye and a protective shield was placed over the eye. The patient returned to the postoperative recovery in stable condition. DICTATING PHYSICIAN: VALERY VIRAMONTES M.D. [id number] PHY#: [id number] ID: [id number] JOB#: [id number] ACCT: [id number] cc:VALERY VIRAMONTES M.D. >
--- NOTE | 2018-12-05 06:24 | [facility] DISCHARGE SUMMARY E ---
[facility] Discharge Summary NAME: KARINE ESQUEDA AGE: 63Y ADMITTED: 12/04/2018 DISCHARGED: 12/04/2018 HISTORY: This is a 63-year-old male who underwent cataract extraction of the left eye. DIAGNOSIS: Cataract, left eye. HOSPITAL COURSE: He underwent surgery because he was having difficulty seeing things off at a distance and reading. DISCHARGE INSTRUCTIONS: He should be on a regular diet. No bending at his waist. No heavy lifting. He should use his Besivance, Durezol, and Prolensa at 3 p.m. and 8 p.m. and sleep with a rigid shield, and I will see him for his one day postoperative tomorrow. DICTATING PHYSICIAN: VALERY VIRAMONTES M.D. [id number] PHY#: [id number] ID: [id number] JOB#: [id number] ACCT: [id number] cc:VALERY VIRAMONTES M.D. >
== END 2018-12-04 12:38 | disposition home or self-care (01) ==
LOC: SC 09:34
PROVIDERS: ATTEND Internal Medicine
DX: H25.89 Other age-related cataract (principal); Z96.1 Presence of intraocular lens; I25.2 Old myocardial infarction; I10 Essential (primary) hypertension; E11.9 Type 2 diabetes mellitus without complications; F17.210 Nicotine dependence, cigarettes, uncomplicated; I49.9 Cardiac arrhythmia, unspecified; Z79.84 Long term (current) use of oral hypoglycemic drugs; Z79.899 Other long term (current) drug therapy
CPT/HCPCS: 66984; 82962; V2632; J2250; J3490 ×2; J0171; J2370; 142

== ENCOUNTER 2019-03-20 20:05 | Emergency (ER) | payer BC ==
[2019-03-20] MEDS ORDERED: NORMAL SALINE 1000 ML 1,000 ML IV ONE (20:40)
--- NOTE | 2019-03-20 20:42 | ER Document Report ---
ED General - General Stated Complaint: WEAKNESS Time Seen by Provider: 03/20/19 20:31 Primary Care Provider: [facility] [Provider Group] - Follow up as needed Notes: Patient is a 63-year-old male that comes to the emergency department for chief complaint of alcohol intoxication. Patient reports to me that his gave him liquor and he drank too much. EMS report per nursing staff is that patient was drinking, got in an argument with his , left, drink more, she later found him lying on the front lawn. Reportedly she dumped a bucket of water on him and he still does not get up so she called EMS. EMS did report his vital signs were normal but he was only waking up with sternal rub. There were no trauma signs reported. Patient denies any pain including chest pain or headache. Past medical history of diabetes, hypertension, hyperlipidemia, chronic pain management for his knee, and frequent alcohol use. TRAVEL OUTSIDE OF THE [place] IN LAST 30 DAYS: No - Related Data Allergies/Adverse Reactions: No Known Allergies Allergy (Verified 11/04/17 08:31) Past Medical History - General Information source: Patient - Social History Smoking Status: Never Smoker Frequency of alcohol use: Heavy Lives with: Family Family History: Reviewed & Not Pertinent - Past Medical History Cardiac Medical History: Reports: Hx Heart Attack - 2016 SMALL ONE, Hx Hypercholesterolemia, Hx Hypertension Denies: Hx Atrial Fibrillation, Hx Congestive Heart Failure, Hx Coronary Artery Disease, Hx Peripheral Vascular Disease, Hx Pulmonary Embolism, Hx Heart Murmur Pulmonary Medical History: Reports: Hx Pneumonia - 4 year ago. Denies: Hx Asthma, Hx Bronchitis, Hx COPD, Hx Respiratory Failure, Hx Sleep Apnea, Hx Tuberculosis Neurological Medical History: Denies: Hx Cerebrovascular Accident, Hx Seizures Endocrine Medical History: Reports: Hx Diabetes Mellitus Type 2. Denies: Hx Graves' Disease, Hx Hyperthyroidism, Hx Hypothyroidism Renal/ Medical History: Denies: Hx Peritoneal Dialysis Malignancy Medical History: Denies Hx Lung Cancer GI Medical History: Denies: Hx Hepatitis, Hx Hiatal Hernia, Hx Ulcer Musculoskeletal Medical History: Reports Hx Arthritis, Denies Hx Fibromyalgia, Denies Hx Muscular Dystrophy, Denies Hx Systemic Lupus Erythematosus Traumatic Medical History: Denies: Hx Fractures Infectious Medical History: Denies: Hx Hepatitis Past Surgical History: Reports: Hx Orthopedic Surgery - left and right knee. Denies: Hx Appendectomy, Hx Bowel Surgery, Hx Cholecystectomy, Hx Coronary Artery Bypass Graft, Hx Gastric Bypass Surgery, Hx Herniorrhaphy, Hx Open Heart Surgery, Hx Pacemaker, Hx Tonsillectomy - Immunizations Hx Diphtheria, Pertussis, Tetanus Vaccination: Yes Review of Systems - Review of Systems Constitutional: See HPI EENT: No symptoms reported Cardiovascular: No symptoms reported Respiratory: No symptoms reported Gastrointestinal: No symptoms reported Genitourinary: No symptoms reported Male Genitourinary: No symptoms reported Musculoskeletal: No symptoms reported Skin: No symptoms reported Hematologic/Lymphatic: No symptoms reported Neurological/Psychological: See HPI Physical Exam - Vital signs Vitals: Temp 98.4 F 03/20/19 20:06 - Notes Notes: GENERAL: Slurring some words, smells of alcohol. Does not appear to be in distress. Awake but mildly drowsy. HEAD: Normocephalic, atraumatic. EYES: Pupils equal, round, and reactive to light. Extraocular movements intact. ENT: Oral mucosa moist, tongue midline. Oropharynx unremarkable. Airway patent. NECK: Full range of motion. Supple. Trachea midline. LUNGS: Clear to auscultation bilaterally, no wheezes, rales, or rhonchi. No respiratory distress. HEART: Regular rate and rhythm. No murmur ABDOMEN: Soft, non-tender. Non-distended. Bowel sounds present in all 4 quadrants. GENITOURINARY: Deferred EXTREMITIES: Moves all 4 extremities spontaneously. No edema, normal radial and dorsalis pedis pulses bilaterally. No cyanosis. BACK: no cervical, thoracic, lumbar midline tenderness. No saddle anesthesia, normal distal neurovascular exam. Moves all extremities in full range of motion. NEUROLOGICAL: Alert and oriented x3. Slightly slurred speech. Cranial nerves II through XII grossly intact. PSYCH: Normal affect, normal mood. SKIN: Flushed skin, otherwise unremarkable Course - Re-evaluation Re-evalutation: Patient falling asleep and becomes borderline hypoxic at 90% on room air. Otherwise he is quite well-appearing except for being intoxicated and slurring his words. He is also slightly unsteady. There are no signs of trauma on the exam. No reported trauma. Giving IV fluids, work-up pending. CBC, chemistry, troponin, chest x-ray, EKG without acute findings. Glucose, sodium unremarkable. On reevaluation patient is much more sober. He is not slurring his words, he is requesting to go home with his . Patient got up and ambulated without any difficulty. Patient is clinically sober. Discussed risk of heavy intoxication, work-up, follow-up, return precautions. Patient did tell me that he is depressed because of his chronic orthopedic pain, he is on pain management and has follow-up for this, he states that he feels like he needs a referral to a therapist or psychiatrist. He denies SI or HI. He declines speaking with mental health here. Stable at time of discharge. - Vital Signs Vital signs: Temp Pulse Resp BP Pulse Ox 98.5 F 28 H 112/74 96 03/21/19 00:00 03/21/19 00:01 03/21/19 00:00 03/21/19 00:01 - Laboratory Result Diagrams: 03/20/19 20:23 03/20/19 20:23 Laboratory results interpreted by me: 03/20/19 03/20/19 20:23 20:23 WBC 10.8 H RBC 4.24 L RDW 14.6 H Chloride 109 H Glucose 114 H Discharge - Discharge Clinical Impression: Alcohol intoxication Qualifiers: Complication of substance-induced condition: with unspecified complication Qualified Code(s): F10.929 - Alcohol use, unspecified with intoxication, unspeci fied Depression Qualifiers: Depression Type: unspecified Qualified Code(s): F32.9 - Major depressive disorder, single episode, unspecified Condition: Stable Disposition: HOME, SELF-CARE Additional Instructions: Continue to hydrate today. Avoid drinking alcohol to intoxication. Follow up with [facility] for treatment and evaluation for depression. Come back for any concerning symptoms (vomiting, difficulty breathing, chest pain, passing out), or if something is not right. Referrals: [facility] [Provider Group] - Follow up as needed
[2019-03-20 20:53] LABS: ABSOLUTE BASOPHILS # (AUTO) 0.1 10^3/uL (0.0-0.2); ABSOLUTE EOSINOPHILS # (AUTO) 0.3 10^3/uL (0.0-0.6); ABSOLUTE LYMPHOCYTES (AUTO) 2.7 10^3/uL (0.5-4.7); ABSOLUTE MONOCYTES (AUTO) 0.8 10^3/uL (0.1-1.4); ABSOLUTE NEUT (AUTO) 6.9 10^3/uL (1.7-8.2); EOSINOPHILS % (AUTO) 3.1 % (0-6); HEMATOCRIT 40.7 % (37.9-51.0); HEMOGLOBIN 13.7 g/dL (13.5-17.0); LYMPHOCYTES % (AUTO) 25.2 % (13-45); MEAN CORPUSCULAR HEMOGLOBIN 32.3 pg (27.0-33.4); MEAN CORPUSCULAR HGB CONC 33.6 g/dL (32.0-36.0); MEAN CORPUSCULAR VOLUME 96 fl (80-97); MONOCYTES % (AUTO) 7.2 % (3-13); PLATELET COUNT 240 10^3/uL (150-450); RED BLOOD COUNT 4.24 10^6/uL (4.35-5.55); RED CELL DISTRIBUTION WIDTH 14.6 % (11.5-14.0); SEGMENTED NEUTROPHILS % (AUTO) 63.5 % (42-78); TOTAL CELLS COUNTED % (AUTO) 100 %; WHITE BLOOD COUNT 10.8 10^3/uL (4.0-10.5)
[2019-03-20 21:10] LABS: ALANINE AMINOTRANSFERASE 29 U/L (21-72); ALKALINE PHOSPHATASE 84 U/L (38-126); ANION GAP 11 (5-19); ASPARTATE AMINO TRANSFERASE 48 U/L (17-59); BILIRUBIN,DIRECT 0.2 mg/dL (0.0-0.4); BILIRUBIN,TOTAL 0.4 mg/dL (0.2-1.3); BLOOD UREA NITROGEN 9 mg/dL (7-20); CALCIUM 9.5 mg/dL (8.4-10.2); CARBON DIOXIDE 23 mmol/L (22-30); CHLORIDE 109 mmol/L (98-107); GLUCOSE 114 mg/dL (75-110); POTASSIUM 3.8 mmol/L (3.6-5.0); SODIUM 143.1 mmol/L (137-145)
--- NOTE | 2019-03-20 21:46 | RADIOLOGY REPORT (SQ) ---
EXAM DESCRIPTION: XR CHEST 1 VIEW COMPLETED DATE/TME: 03/20/2019 20:39 CLINICAL HISTORY: 63 years Male passed out COMPARISON: 03/18/2018 FINDINGS: Cardiac enlargement. Tortuous and calcified aorta. Lungs appear clear without evidence of infiltrate or edema. No pneumothorax or pleural fluid. IMPRESSION: No acute abnormality is identified. Cardiac enlargement
[2019-03-21 00:14] VITALS: BP 112/74
--- NOTE | 2019-03-22 00:20 | EKG REPORT ---
SEVERITY:- ABNORMAL ECG - SINUS RHYTHM IVCD, CONSIDER ATYPICAL RBBB LVH WITH IVCD AND SECONDARY REPOL ABNRM : Confirmed by: Jose Carter 22-Mar-2019 00:19:44
== END 2019-03-21 00:16 | disposition home or self-care (01) ==
LOC: ER 20:05
DX: F10.929 Alcohol use, unspecified with intoxication, unspecified (principal); F32.9 Major depressive disorder, single episode, unspecified; R53.1 Weakness; I25.2 Old myocardial infarction; E78.00 Pure hypercholesterolemia, unspecified; I10 Essential (primary) hypertension; E11.9 Type 2 diabetes mellitus without complications
CPT/HCPCS: 93005; 99284; 96360; 96361; 36415; 85025; 80053; 84484; 71045; 93010; J7030

== ENCOUNTER 2019-10-13 09:14 | Emergency (ER) | payer BC ==
--- NOTE | 2019-10-13 09:49 | ER Document Report ---
ED Fall - General Chief Complaint: Fall Injury Stated Complaint: FALL/BACK AND RIGHT GREAT TOE PAIN Time Seen by Provider: 10/13/19 09:40 Primary Care Provider: DEVIN TEE MD [Primary Care Provider] - Follow up as needed LUCIO PERALTA JR, DO [ACTIVE PROVISIONAL STAFF] - Follow up as needed Mode of Arrival: Ambulatory Information source: Patient Notes: 63-year-old male presented to ED for right lower back pain after he lifted some heavy TVs on Saturday. And then he fell yesterday injuring his right right great toe and right thumb. Dates he is never injured this thumb were told in the past. It is not had back pain before. Alert oriented respirations regular nonlabored TRAVEL OUTSIDE OF THE [place] IN LAST 30 DAYS: No - HPI Occurred: Other - Saturday he lifted a TV yesterday he fell Where: Public place Context: Tripped, Lost balance Associated symptoms: None Location of injury/pain: Back, Other - Right great toe right thumb Quality of pain: Achy Severity: Severe Pain Level: 5 - Related data Allergies/Adverse Reactions: No Known Allergies Allergy (Verified 10/13/19 09:32) Home Medications: [facility]/ [address] Past Medical History - General Information source: Patient - Social History Smoking Status: Current Every Day Smoker Cigarette use (# per day): Yes - Pack per day Chew tobacco use (# tins/day): No Smoking Education Provided: Yes Frequency of alcohol use: Social - Maybe a pint a week Drug Abuse: None Occupation: Tired Lives with: Spouse/Significant other Family History: Reviewed & Not Pertinent Patient has suicidal ideation: No Patient has homicidal ideation: No - Past Medical History Cardiac Medical History: Reports: Hx Heart Attack - 2016 SMALL ONE, Hx Hypercholesterolemia, Hx Hypertension Pulmonary Medical History: Reports: Hx Pneumonia - 4 year ago. EENT Medical History: Reports: None Endocrine Medical History: Reports: Hx Diabetes Mellitus Type 2 Renal/ Medical History: Denies: Hx Peritoneal Dialysis GI Medical History: Reports: Hx Colonoscopy, Hx Endoscopy Musculoskeletal Medical History: Reports Hx Arthritis, Reports Hx Musculoskeletal Trauma - Back Skin Medical History: Reports None Psychiatric Medical History: Reports: Hx Depression Traumatic Medical History: Reports: None Infectious Medical History: Reports: None Past Surgical History: Reports: Hx Orthopedic Surgery - Right knee replacement scope the left - Immunizations Hx Diphtheria, Pertussis, Tetanus Vaccination: Yes Review of Systems - Review of Systems Constitutional: No symptoms reported EENT: No symptoms reported Cardiovascular: No symptoms reported Respiratory: No symptoms reported Gastrointestinal: No symptoms reported Genitourinary: No symptoms reported Male Genitourinary: No symptoms reported Musculoskeletal: Back pain, Other - Right great toe right thumb Skin: No symptoms reported Hematologic/Lymphatic: No symptoms reported Neurological/Psychological: No symptoms reported -: Yes All other systems reviewed and negative Physical Exam - Vital signs Vitals: Temp Pulse Resp BP Pulse Ox 98.3 F 89 16 136/87 H 99 10/13/19 09:23 10/13/19 09:23 10/13/19 09:23 10/13/19 09:23 10/13/19 09:23 Interpretation: Normal - General General appearance: Appears well, Alert - HEENT Head: Normocephalic, Atraumatic Eyes: Normal Pupils: PERRL - Respiratory Respiratory status: No respiratory distress Chest status: Nontender Breath sounds: Normal Chest palpation: Normal - Cardiovascular Rhythm: Regular Heart sounds: Normal auscultation Murmur: No - Abdominal Inspection: Normal Distension: No distension Bowel sounds: Normal Tenderness: Nontender Organomegaly: No organomegaly - Back Back: Normal, Nontender - Extremities General upper extremity: Normal inspection, Normal color, Normal ROM, Normal temperature General lower extremity: Normal color, Normal ROM, Normal temperature, Normal weight bearing. No: Bruna's sign Hand: No evidence of human bite, No evidence of FB, Other - thumb Foot: Tender - great toe - Neurological Neuro grossly intact: Yes Cognition: Normal Orientation: AAOx4 [place] Coma Scale Eye Opening: Spontaneous [place] Coma Scale Verbal: Oriented Fritz Coma Scale Motor: Obeys Commands Fritz Coma Scale Total: 15 Speech: Normal Motor strength normal: LUE, RUE, LLE, RLE Sensory: Normal - Psychological Associated symptoms: Normal affect, Normal mood - Skin Skin Temperature: Warm Skin Moisture: Dry Skin Color: Normal Course - Re-evaluation Re-evalutation: 10/13/19 18:57 X-rays discussed with patient. Patient was treated with a thumb spica for his fracture to the thumb. He was discharged home with a [place] dispense pack and a prescription for Flexeril for his back pain. Patient was able to verbalize understanding and agreement with treatment plan. Patient was instructed to follow-up with orthopedics for his fracture to the thumb. - Vital Signs Vital signs: Temp Pulse Resp BP Pulse Ox 98.4 F 78 16 141/80 H 97 10/13/19 13:27 10/13/19 13:27 10/13/19 09:23 10/13/19 13:27 10/13/19 13:27 - Diagnostic Test Radiology reviewed: Image reviewed, Reports reviewed Procedures - Immobilization Right Hand Time completed: 13:30 Pre-Proc Neuro Vasc Exam: Normal Immobilizer type: Thumb spica Performed by: PCT Post-Proc Neuro Vasc Exam: Normal Alignment checked and good: Yes Discharge - Discharge Clinical Impression: Pain of right great toe Fracture of proximal phalanx of right thumb Qualifiers: Encounter type: initial encounter Fracture type: closed Fracture alignment: nondisplaced Qualified Code(s): S62.514A - Nondisplaced fracture of proximal phalanx of right thumb, initial encounter for closed fracture Low back pain Qualifiers: Chronicity: chronic Back pain laterality: bilateral Sciatica presence: without sciatica Qualified Code(s): M54.5 - Low back pain Condition: Stable Disposition: HOME, SELF-CARE Additional Instructions: Your x-ray shows a fracture at the base of the right thumb. You have been placed in a splint for this fracture until you follow-up with orthopedics. Your x-ray does not show any fracture to the right great toe or to the low back. The low back does show some arthritis and severe degenerative changes. MUSCLE STRAIN: You have strained a muscle -- torn the fibers within the muscle. This often occurs with strenuous exertion, or during an injury that suddenly stretches the muscle. The seriousness of a strain varies. Some strains heal within days, others cause problems for months. X-rays cannot show a muscle strain. X-rays are taken only if symptoms suggest that a fracture could be present. The usual treatment of a muscle strain is rest and ice packs. Sometimes, a sling, splint, or crutches may be necessary to rest the muscle. The muscle can be used again once pain subsides. Severe strains require a special exercise and stretching program to prevent permanent stiffness and disability. Your doctor will advise you if this will be necessary. Call the doctor immediately if pain or swelling becomes severe, or if numbness or discoloration develop. LOW BACK PAIN: Three out of every four people will have an episode of disabling back pain during their lifetime. Most commonly the pain is due to straining of the muscles and ligaments in the low back. Usual treatment includes: (1) Rest on a firm surface. Avoid lying on your stomach. (2) Ice pack the painful area. After a few days, gentle heat may be used intermittently to relax the area, or ice packs can be continued. (3) Medication may be needed -- muscle relaxers and antiinflammatory medicines are commonly used. (4) As the back improves, exercises are prescribed to strengthen the back and abdominal muscles. Your doctor will advise you on the proper care for your back at each stage in your recovery. You may be better in a few days -- or healing may take several weeks. If new symptoms of a "herniated disc" (radiation of pain, numbness, or tingling down the back of the leg or weakness in the leg) occur, you should be re-examined. Further testing may be necessary. USE OF TYLENOL (ACETAMINOPHEN): Acetaminophen may be taken for pain relief or fever control. It's much s afer than aspirin, offering a wider range of "safe" dosages. It is safe during . Some brand names are Tylenol, Panadol, Datril, Anacin 3, Tempra, and Liquiprin. Acetaminophen can be repeated every four hours. The following are maximum recommended dosages: WEIGHT Dose Drops Elixir Chewable(80mg) (LBS.) drprs=droppers tsp=teaspoon 6 40 mg 0.4 ml (1/2) 6-11 80 mg 0.8 ml (full) tsp 1 tab 12-16 120 mg 1 1/2 drprs 3/4 tsp 1 1/2 tabs 17-23 160 mg 2 drprs 1 tsp 2 tabs 24-30 240 mg 3 drprs 1 1/2 tsp 3 tabs 30-35 320 mg 2 tsp 4 tabs 36-41 360 mg 2 1/4 tsp 4 1/2 tabs 42-47 400 mg 2 1/2 tsp 5 tabs 48-53 480 mg 3 tsp 6 tabs 54-59 520 mg 3 1/4 tsp 6 1/2 tabs 60-64 560 mg 3 1/2 tsp 7 tabs 65-70 600 mg 3 3/4 tsp 7 1/2 tabs 71-76 640 mg 4 tsp 8 tabs 77-82 720 mg 4 1/2 tsp 9 tabs 83-88 800 mg 5 tsp 10 tabs >89 pounds or adults 650 mg to 900 mg Acetaminophen can be repeated every four hours. Maximum dose not to exceed 4000 mg a day. These maximum recommended dosages are slightly higher than the dosages written on the product container, but these dosages are very safe and below the toxic dosage for acetaminophen. ICE PACKS: Apply ice packs frequently against the painful area. Many different schedules are recommended, such as "20 minutes on, 20 minutes off" or "one hour ice, two hours rest." If you need to work, you may need to go longer between ice treatments. You should plan to have the area ice packed AT LEAST one fourth of the time. The ice should be applied over the wrap, tape, or splint, or over a layer of cloth -- not directly against the skin. Some ice bags have a built-in cloth and can be put directly on the skin. WARM PACKS: After approximately two days, apply gentle heat (such as a heating pad or hot water bottle) for about 20 to 30 minutes about every two hours -- at least four times daily. Warmth and elevation will help you make a more rapid recovery, and will ease the pain considerably. Do not use HOT heat, and never apply heat for longer than 30 minutes. The continuous heat can invisibly damage skin and muscles -- even when no burn is seen on the surface. Damaged muscles can make you MORE sore. MUSCLE RELAXERS: Muscle relaxing medications are usually prescribed for acute muscle spasm or injury to the neck and back. They are often combined with antiinflammatory pain medication for increased relief. You may stop the muscle relaxer when the pain and stiffness have improved. Start the medication again if spasms recur. Muscle relaxers may cause drowsiness, especially with the first dose. Do not operate machinery or drive while under the effects of the medication. Most muscle relaxers last up to 24 hours. Do not combine the medication with alcohol. Ibuprofen Ibuprofen is an excellent, safe drug for pain control. In addition, it has potent antiinflammatory effects which are beneficial, especially in the treatment of injuries, arthritis, or tendonitis. It's best to take ibuprofen with food. Persons with ulcer disease or allergy to aspirin should notify their physician of this before taking ibuprofen. Take the medication exactly as prescribed. Don't take additional doses unless instructed to do so by your doctor. If you develop wheezing, shortness of breath, hives, faintness, stomach pain, vomiting, or dark black stools, return for re-evaluation at once. Oral Narcotic Medication You have been given a [place] dispense pack for pain control. This medication is a narcotic. It's best taken with food, as nausea can result if taken on an empty stomach. Don't operate machinery or drive within six hours of taking this medication. Do not combine this medicine with alcohol, or with any medication which can cause sedation (such as cold tablets or sleeping pills) unless you get permission from the physician. Narcotics tend to cause constipation. If possible, drink plenty of fluids and eat a diet high in fiber and fruits. FOLLOW-UP CARE: If you have been referred to a physician for follow-up care, call the physicians office for an appointment as you were instructed or within the next two days. If you experience worsening or a significant change in your symptoms, notify the physician immediately or return to the Emergency Department at any time for re-evaluation. Prescriptions: Cyclobenzaprine HCl [Flexeril 5 mg Tablet] 5 mg PO TID #15 tablet Forms: Elevated Blood Pressure, Smoking Cessation Education Referrals: DEVIN TEE MD [Primary Care Provider] - Follow up as needed LUCIO PERALTA JR, DO [ACTIVE PROVISIONAL STAFF] - Follow up as needed
[2019-10-13] MEDS ORDERED: IBUPROFEN 600 MG TABLET PO ONE (09:51)
--- NOTE | 2019-10-13 10:51 | RADIOLOGY REPORT (SQ) ---
EXAM DESCRIPTION: TOE RIGHT COMPLETED DATE/TIME: 10/13/2019 9:30 am REASON FOR STUDY: back pain and pain in right thumb and great toe COMPARISON: None. NUMBER OF VIEWS: Three views. TECHNIQUE: AP, lateral, and oblique images acquired of the right 1st digit LIMITATIONS: None. FINDINGS: MINERALIZATION: Osteopenia. BONES: No acute fracture or dislocation. No worrisome bone lesions. JOINTS: Moderate osteoarthritis at the 1st digit metatarsophalangeal joint space. Mild osteoarthriti s DIP and PIP joints of all digits. SOFT TISSUES: No soft tissue swelling. No foreign body. OTHER: No other significant finding. IMPRESSION: No acute fracture or dislocation of the right 1st digit. Moderate osteoarthritis at the MTP joint. COMMENT: SITE OF TRAUMA/COMPLAINT MARKED/STAMP COMPLETED: NA TECHNICAL DOCUMENTATION: JOB ID: [id number] [employer]- All Rights Reserved Reading location - IP/workstation name: [email or web address]
--- NOTE | 2019-10-13 10:56 | RADIOLOGY REPORT (SQ) ---
EXAM DESCRIPTION: L SPINE WHOLE COMPLETED DATE/TIME: 10/13/2019 10:30 am REASON FOR STUDY: back pain and pain in right thumb and great toe COMPARISON: None. NUMBER OF VIEWS: Five views including obliques. TECHNIQUE: AP, lateral, oblique, and sacral radiographic images acquired of the lumbar spine. LIMITATIONS: None. FINDINGS: MINERALIZATION: Normal. SEGMENTATION: Normal. No transitional anatomy. ALIGNMENT: Normal. VERTEBRAE: Maintained height. No fracture or worrisome bone lesion. DISCS: Multilevel disc space narrowing with osteophytes. POSTERIOR ELEMENTS: Pedicles and facets are intact. No pars defect or posterior arch defects. Facet arthropathy is present. HARDWARE: None in the spine. PARASPINAL SOFT TISSUES: Normal. PELVIS: Intact as visualized. No fractures or worrisome bone lesions. SI joints intact. OTHER: No other significant finding. IMPRESSION: SPONDYLOSIS WITHOUT BONE LESION OR FRACTURE. TECHNICAL DOCUMENTATION: JOB ID: [id number] [employer]- All Rights Reserved Reading location - IP/workstation name: [email or web address]
--- NOTE | 2019-10-13 12:52 | RADIOLOGY REPORT (SQ) ---
EXAM DESCRIPTION: FINGER RIGHT COMPLETED DATE/TIME: 10/13/2019 11:01 am REASON FOR STUDY: Pain to right thumb. Fell on thumb. COMPARISON: None. NUMBER OF VIEWS: Three views. TECHNIQUE: AP, lateral, and oblique images acquired of the right 1st digit LIMITATIONS: None. FINDINGS: MINERALIZATION: Normal. BONES: There is a tiny corner fracture at the radial aspect of the proximal 1st digit proximal phalan x. No significant displacement. Normal joint space alignment. Moderate osteoarthritis at the 1st d igit carpometacarpal joint. SOFT TISSUES: No soft tissue swelling. No foreign body. OTHER: No other significant finding. IMPRESSION: Acute tiny corner fracture at the proximal base 1st digit proximal phalanx. COMMENT: SITE OF TRAUMA/COMPLAINT MARKED/STAMP COMPLETED: Marked with arrows TECHNICAL DOCUMENTATION: JOB ID: [id number] [employer]- All Rights Reserved Reading location - IP/workstation name: [email or web address]
[2019-10-13] MEDS ORDERED: HYDROCODONE/ACETAMINOPHEN 5-325 MG (6 TAB/ER DISP) PO PRN (13:15)
[2019-10-13 13:35] VITALS: BP 141/80
== END 2019-10-13 13:35 | disposition home or self-care (01) ==
LOC: ER 09:14
PROC: 2W3CX1Z Immobilization of Right Lower Arm using Splint (ICD-10-PCS; principal; 2019-10-13)
DX: S62.514A Nondisplaced fracture of proximal phalanx of right thumb, initial encounter for closed fracture (principal); M54.5 Low back pain; M54.9 Dorsalgia, unspecified; M79.674 Pain in right toe(s); M79.644 Pain in right finger(s); X50.0XXA Overexertion from strenuous movement or load, initial encounter; F17.210 Nicotine dependence, cigarettes, uncomplicated; I25.2 Old myocardial infarction; I10 Essential (primary) hypertension; E11.9 Type 2 diabetes mellitus without complications
CPT/HCPCS: 72110; 99283

== ENCOUNTER 2019-12-01 21:49 | Emergency (ER) | payer OTHER, MEDICARE, BC ==
[2019-12-01 23:07] LABS: ABSOLUTE BASOPHILS # (AUTO) 0.1 10^3/uL (0.0-0.2); ABSOLUTE EOSINOPHILS # (AUTO) 0.4 10^3/uL (0.0-0.6); ABSOLUTE MONOCYTES (AUTO) 0.7 10^3/uL (0.1-1.4); ABSOLUTE NEUT (AUTO) 6.2 10^3/uL (1.7-8.2); BASOPHILS % (AUTO) 1.3 % (0-2); EOSINOPHILS % (AUTO) 3.9 % (0-6); HEMATOCRIT 42.1 % (37.9-51.0); HEMOGLOBIN 14.7 g/dL (13.5-17.0); LYMPHOCYTES % (AUTO) 21.4 % (13-45); MEAN CORPUSCULAR HEMOGLOBIN 34.5 pg (27.0-33.4); MEAN CORPUSCULAR HGB CONC 34.9 g/dL (32.0-36.0); MEAN CORPUSCULAR VOLUME 99 fl (80-97); MONOCYTES % (AUTO) 7.8 % (3-13); PLATELET COUNT 243 10^3/uL (150-450); RED BLOOD COUNT 4.25 10^6/uL (4.35-5.55); RED CELL DISTRIBUTION WIDTH 13.9 % (11.5-14.0); SEGMENTED NEUTROPHILS % (AUTO) 65.6 % (42-78); TOTAL CELLS COUNTED % (AUTO) 100 %; WHITE BLOOD COUNT 9.5 10^3/uL (4.0-10.5)
[2019-12-01 23:26] LABS: ALKALINE PHOSPHATASE 137 U/L (38-126); ANION GAP 12 (5-19); ASPARTATE AMINO TRANSFERASE 83 U/L (17-59); BILIRUBIN,DIRECT 0.4 mg/dL (0.0-0.4); BILIRUBIN,TOTAL 0.5 mg/dL (0.2-1.3); BLOOD UREA NITROGEN 7 mg/dL (7-20); CALCIUM 9.2 mg/dL (8.4-10.2); CARBON DIOXIDE 22 mmol/L (22-30); CHLORIDE 101 mmol/L (98-107); GLUCOSE 167 mg/dL (75-110); POTASSIUM 4.1 mmol/L (3.6-5.0); TOTAL PROTEIN 7.7 g/dL (6.3-8.2)
--- NOTE | 2019-12-01 23:56 | RADIOLOGY REPORT (SQ) ---
EXAM DESCRIPTION: US ABDOMEN COMPLETED DATE/TME: 12/01/2019 22:24 CLINICAL HISTORY: 64 years Male, Right upper quadrant abdominal pain Comparison: None. LIMITATIONS: None. FINDINGS: Gallbladder, negative sonographic Barnett's test, 19 cm hepatomegaly, moderate hepatic steatosis, a 0.3-cm diameter common bile duct, no intrahepatic ductal dilation, hepatopetal patent flow of the portal vein, 11-cm right kidney, obscured pancreas, 11-cm left kidney, spleen, vasculature/abdominal aorta, and no significant ascites appear otherwise unremarkable. IMPRESSION: Mild hepatomegaly. Moderate hepatic steatosis. Limitation.
[2019-12-02] MEDS ORDERED: ACETAMINOPHEN 325 MG TABLET PO ONE (00:01)
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
[2019-12-02] MEDS ORDERED: KETOROLAC TROMETHAMINE 60 MG/2 ML SDV IM ONE (01:54)
[2019-12-02 02:18] VITALS: BP 146/70
== END 2019-12-02 02:17 | disposition home or self-care (01) ==
LOC: ER 21:49
DX: S39.012A Strain of muscle, fascia and tendon of lower back, initial encounter (principal); V43.52XA Car driver injured in collision with other type car in traffic accident, initial encounter; K76.0 Fatty (change of) liver, not elsewhere classified; R10.9 Unspecified abdominal pain; F17.200 Nicotine dependence, unspecified, uncomplicated; I10 Essential (primary) hypertension; E11.9 Type 2 diabetes mellitus without complications
CPT/HCPCS: 99284; 96372; 36415; 80307; 85025; 80053; 76700; J1885